=== PATIENT | male | born 1995 ===

== ENCOUNTER 2017-06-04 23:14 | Inpatient (IN) | payer OTHER ==
[2017-06-04 23:24] VITALS: O2SAT 99
--- NOTE | 2017-06-05 00:01 | ED PDOC ---
HPI: Psych/Substance Abuse Time Seen by Provider: 06/04/17 23:27 Chief Complaint (Nursing): Psychiatric Evaluation Chief Complaint (Provider): bizarre behavior Additional Complaint(s): Pt called 911 with paranoid delusions. Pt reports that he's just nervous. Denies homicidal or suicidal ideations. Denies hallucinations. Admits to smoking marijuana regularly. Denies other substance abuse. PMD None Past Medical History Reviewed: Historical Data, Nursing Documentation, Vital Signs Vital Signs: Last Vital Signs Temp 98.0 F 06/04/17 23:19 Pulse 93 H 06/04/17 23:19 Resp 18 06/04/17 23:19 BP 148/119 H 06/04/17 23:19 Pulse Ox 99 06/04/17 23:19 - Medical History PMH: No Chronic Diseases - Surgical History Surgical History: Appendectomy - Family History Family History: States: No Known Family Hx - Social History Current smoker - smoking cessation education provided: Yes Alcohol: None Drugs: Cannabis - Allergies Allergies/Adverse Reactions: Allergies Allergy/AdvReac Type Severity Reaction Status Date / Time No Known Allergies Allergy Verified 06/04/17 23:19 Review of Systems ROS Statement: Except As Marked, All Systems Reviewed And Found Negative Psych: Positive for: Anxiety. Negative for: Suicidal ideation, Withdrawal Physical Exam - Reviewed Nursing Documentation Reviewed: Yes Vital Signs Reviewed: Yes - Physical Exam Appears: Positive for: In Acute Distress (restless and anxious) Head Exam: Positive for: ATRAUMATIC, NORMOCEPHALIC Skin: Positive for: Warm, Dry Eye Exam: Positive for: Normal appearance, EOMI, PERRL ENT: Positive for: Other (muc membr moist) Neck: Positive for: Painless ROM, Supple Cardiovascular/Chest: Positive for: Regular Rate, Rhythm, Chest Non Tender. Negative for: Murmur Respiratory: Positive for: Normal Breath Sounds. Negative for: Respiratory Distress Gastrointestinal/Abdominal: Positive for: Soft. Negative for: Tenderness Back: Positive for: Normal Inspection Extremity: Positive for: Normal ROM. Negative for: Deformity Lymphatic: Negative for: Adenopathy Neurologic/Psych: Positive for: Alert, Oriented, Mood/Affect (anxious mood and excited and anxious affect, tangential thought, flight of ideas, poor concentration. Otherwise cooperative during my exam.). Negative for: Motor/ Sensory Deficits - Laboratory Results Result Diagrams: 06/04/17 01:01 06/04/17 01:01 - ECG O2 Sat by Pulse Oximetry: 99 - Progress ED Course And Treament: Manic behavior, new onset Labs and crisis eval ordered Due to restlessness, attempts to leave room often. 1:1 ordered. Disposition - Clinical Impression Clinical Impression: Bizarre behavior - Disposition Disposition Time: 00:00 Condition: STABLE Patient Signed Over To: Arnel Moreno Y Handoff Comments: Pending Crisis eval, final dispo
--- NOTE | 2017-06-05 00:19 | ED PDOC ---
- Laboratory Results Result Diagrams: 06/04/17 01:01 06/04/17 01:01 - ECG O2 Sat by Pulse Oximetry: 99 Medical Decision Making Medical Decision Makin Patient signed out to me from Dr. Lucia pending work up and crisis evalutaion [id number] Patient evaluated by crisis. Will be admitted under [facility] for anxiety. Labs reviewed: (+) marijuana Scribe Attestation: Documented by Adilia Ramirez acting as a scribe for Arnel Moreno MD. Scribe Attestation: All medical record entries made by the Scribe were at my direction and personally dictated by me. I have reviewed the chart and agree that the record accurately reflects my personal performance of the history, physical exam, medical decision making, and the department course for this patient. I have also personally directed, reviewed, and agree with the discharge instructions and disposition. Disposition Counseled Patient/Family Regarding: Studies Performed, Diagnosis - Clinical Impression Clinical Impression: Bizarre behavior - POA Present On Arrival: None - Disposition Disposition: Admitted as In-Patient (Psychiatric) Disposition Time: 01:05 Condition: STABLE
[2017-06-05 01:11] LABS: BASO % 0.4 % (0.0-2.0); EOS % 0.3 % (0.0-4.0); HEMATOCRIT 43.5 % (35.0-51.0); LYMPH % 19.4 % (20.0-40.0); MEAN CELL VOLUME 90.9 fl (80.0-94.0); MEAN CORPUSCULAR HEMOGLOBIN 30.1 pg (27.0-31.0); MEAN CORPUSCULAR HGB CONC 33.2 g/dL (33.0-37.0); MEAN PLATELET VOLUME 8.9 fl (7.2-11.7); MONO # 0.7 K/uL (0.0-0.8); MONO % 7.2 % (0.0-10.0); NEUT # 7.4 K/uL (1.8-7.0); NEUT % 72.7 % (50.0-75.0); NRBC % 0.1 % (0.0-0.0); RED CELL DISTRIBUTION WIDTH 13.8 % (11.5-14.5); WHITE BLOOD COUNT 10.2 K/uL (4.8-10.8)
[2017-06-05 01:21] LABS: ALB/GLOB RATIO 1.7 (1.0-2.1); ALCOHOL SERUM < 10 mg/dl (0-10); ALKALINE PHOSPHATASE 74 U/L (38-126); ALT/SGPT 41 U/L (21-72); AST/SGOT 29 U/L (17-59); BILIRUBIN,TOTAL 0.9 mg/dl (0.2-1.3); BLOOD UREA NITROGEN 10 mg/dl (9-20); CALCIUM 9.8 mg/dL (8.4-10.2); CARBON DIOXIDE 25 mmol/L (22-30); CHLORIDE 103 mmol/L (98-107); GFR AFRICAN-AMERICAN > 60; GLUCOSE,RANDOM 125 mg/dL (75-110); POTASSIUM 3.8 MMOL/L (3.6-5.0); SODIUM 142 mmol/l (132-148); TOTAL PROTEIN 7.8 G/DL (6.3-8.2)
[2017-06-05 01:50] LABS: THYROID STIMULATING HORMONE 1.72 mIU/ML (0.46-4.68)
[2017-06-05] MEDS ORDERED: Magnesium Hydroxide Susp 30 ml UD PO PRN (02:44)
[2017-06-05] MEDS ORDERED: Alum-Mag Hydrox-Simethicone Susp (30 mL) PO PRN (02:44)
[2017-06-05] MEDS ORDERED: DiphenhydrAMINE 50 mg/ml Inj IM PRN (02:44)
--- NOTE | 2017-06-05 03:26 | PCM.BM ---
<Maria Isabel Silva - Last Filed: 06/05/17 03:24> Treatment Plan Problems - Problems identified on initial assessmt Delusions Date Initiated: 06/05/17 Time Initiated: 03:25 Assessment reference: NA Status: Active Altered though process Date Initiated: 06/05/17 Time Initiated: 03:25 Assessment reference: NA Status: Active Ineffective coping Date Initiated: 06/05/17 Time Initiated: 03:26 Assessment reference: NA Status: Active Treatment assets and liabiliti Patient Assests: adapts well, cooperative, ADL independent, physically healthy, negotiates basic needs Patient Liabilities: poor support system, substance abuse - Milieu Protocol Maintain good personal hygiene: daily Remind patient to perform daily oral care , daily Assist patient to perform ADL's, every shift Encourage regular showers Maintain personal safety: daily Educate patient to report safety concerns to staff, every shift Monitor environment for contraband/sharps Medication safety: Monitor for expected outcome, potential side effects: daily, Assess barriers to learning: daily, Assess readiness for medication education: every shift <Mamta Banuelos - Last Filed: 06/07/17 10:17> Treatment assets and liabiliti Patient Assests: adapts well, cooperative, motivated, self-reliant, ADL independent, physically healthy, negotiates basic needs Patient Liabilities: poor support system, substance abuse Family Contact Family involvement: Family/SO is involved Family contact: Patient agrees to contact, Family has been contacted by patient Family contact name: Chiquis(girlfriend) ([phone]) Family contacted how many times per week?: 1 Family contact comment: Patient identifies long-term girlfriend has bestfriend and primary support. - Goals for Treatment Patient goals for treatment: Patient to be encouraged to attend 3-5 groups/ weekly to identify contributing factors to admission, develop effective coping skills and improve insight. Patient reports improvement in sleep and some improvement in organization of thoughts since admission. Patient expresses being motivated for tx upon d/c. Patient to be provided with referral for appropriate level of aftercare to improve functioning/ensure saftey and reduce risk of future hospitalizations. Discharge/Continuing Care - Education Needs Education Needs: Family Medication, Family Diagnosis/Disease Process, Family Coping Skills, Family Community resources, Family Aftercare Safety Plan, Patient Medication, Patient Diagnosis/Disease Process, Patient Coping Skills, Patient Community resources, Patient Aftercare Safety Plan - Discharge Discharge Criteria: Tolerates medication w/o severe side effects, Free of Suicidal thoughts, Normal sleep pattern, Ability to care for self, Reduction of target symptoms Discharge to:: Home - Treatment Team Participation Patient/Family/SO Statement: 06/07/17 10:11 Patient attended treatment team. Patient continues to present as disorganized and tangential but to a slightly lesser degree than upon admission. Patient presented with loosened associations and flight of ideas. Patient required redirection but is better able to participate in discussion regarding mental health dx, progress on 3NP and aftercare. Discussed with Family/SO: No Was Patient/Family/SO present at Treatment Team Meeting: Radha
[2017-06-05 07:47] LABS: CHOLESTEROL 117 mg/dL (0-199)
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
[2017-06-05] MEDS: Risperidone M tab 0.5MG PO SCH (13:37)
[2017-06-05] MEDS: Divalproex 250 mg DR(BID formulation) PO SCH (13:37)
[2017-06-05] MEDS: Divalproex 500 mg DR(BID formulation) PO SCH (21:13)
[2017-06-06 06:16] LABS: CHOLESTEROL 124 mg/dL (0-199)
[2017-06-06] MEDS: Risperidone M tab 0.5MG PO SCH ×2 (09:41→21:02)
[2017-06-06] MEDS: Divalproex 250 mg DR(BID formulation) PO SCH (09:41)
--- NOTE | 2017-06-06 10:44 | PCM.PYCHPN ---
Psychiatric Progress Note - Psychiatric Progress Note Patient seen today, length of contact: discussed with team Patient Chief Complaint: i feel much better Problems Identified/Issues Discussed: pt remains grandiose, with rapid speech. stating he will donate all of his books to the hospital. feels the medications are helping organize his thoughts. he does continue to endorse racing thoughts. he denies medication side effects. Medication Change: Yes (increase risperdal) Medical Record Reviewed: Yes Mental Status Examination - Cognitive Function Orientation: Person, Place, Situation, Time Memory: Intact Attention: Poor Concentration: Poor Association: Loose Fund of Knowledge: WNL Decription of patient's judgement and insights: fair - Mood Mood: Euphoric - Affect Affect: Broad - Speech Speech: Loud, Pressured - Formal Thought Process Formal Thought Process: Loosening of associations, Flight of ideas, Circumstantial Psychotic Thoughts and Behaviors: grandiose, thoughts more organized - Suicidal Ideation Suicidal Ideation: No - Homicidal Ideation Homicidal Ideation: No Goal/Treatment Plan - Goal/Treatment Plan Need for Continued Stay: Remain at risks for inpatient hospitalization, Discharge may exacerbated symptoms Progress Toward Problem(s) and Goals/Treatment Plan: bipolar disorder, manic with psychosis continue current treatment will increase risperdal to bid dosing check depakote level discharge planning Estimated Date of D/C: 06/09/17
--- NOTE | 2017-06-06 12:32 | CP.PCM.CON ---
History of Present Illness - History of Present Illness History of Present Illness: Chief Complaint: " I'm ok now but I called 911 bec I was feeling very nervous and needed help" HPI : 21 y/o gent with no significant PMH , was admitted to the Psych Unit bec of bizarre behaviour- was dx to have Bipolar Dis. Patient states that prior to admission, he had difficulty sleeping and was feeling very nervous and so he called 911 and was brought to the ED. He states he feel very much better and states that the medications that were started helped him a lot. denies any sxs. He feels fine. no CP, no SOB, no abd pain. Review of Systems - Review of Systems All systems: reviewed and no additional remarkable complaints except - Constitutional Constitutional: absent: Fever, Headache - EENT Eyes: absent: Blurred Vision, Change in Vision Ears: absent: Decreased Hearing Nose/Mouth/Throat: absent: Nasal Congestion - Cardiovascular Cardiovascular: absent: Chest Pain, Chest Pain at Rest, Edema, Orthopnea, Paroxysmal Nocturnal Dyspnea - Respiratory Respiratory: absent: Cough, Dyspnea, Dyspnea on Exertion - Gastrointestinal Gastrointestinal: absent: Abdominal Pain, Nausea, Vomiting - Genitourinary Genitourinary: absent: Dysuria, Nocturia - Musculoskeletal Musculoskeletal: absent: Abnormal Gait, Arthralgias, Limited Range of Motion - Integumentary Integumentary: absent: Lesions - Neurological Neurological: absent: Abnormal Gait, Focal Weakness - Psychiatric Psychiatric: Abnormal Sleep Pattern, Behavioral Changes - Endocrine Endocrine: absent: Polydipsia, Polyphagia, Polyuria - Hematologic/Lymphatic Hematologic: absent: Easy Bleeding, Easy Bruising Past Patient History - Infectious Disease Hx of Infectious Diseases: None - Tetanus Immunizations Tetanus Immunization: Unknown - Past Medical History & Family History Past Medical History?: Yes Pertinent Family History: Mother : DM type II - Past Social History Smoking Status: Light Smoker < 10 Cigarettes Daily Chewing Tobacco Use: No Cigar Use: No Occupation: used to work at [employer] Alcohol: None Drugs: Cannabis Home Situation {Lives}: Roommate - CARDIAC Hx Cardiac Disorders: No Hx Hypertension: No - PULMONARY Hx Respiratory Disorders: No Hx Tuberculosis: No - NEUROLOGICAL HX Cerebrovascular Accident: No Hx Seizures: No - HEENT Hx HEENT Problems: No - RENAL Hx Chronic Kidney Disease: No - ENDOCRINE/METABOLIC Hx Endocrine Disorders: No - HEMATOLOGICAL/ONCOLOGICAL Hx Blood Disorders: No Hx Cancer: No Hx Human Immunodeficiency Virus (HIV): No - INTEGUMENTARY Hx Dermatological Problems: No Other/Comment: Hemangioma right hip area - MUSCULOSKELETAL/RHEUMATOLOGICAL Hx Musculoskeletal Disorders: No - GASTROINTESTINAL Hx Gastrointestinal Disorders: No - GENITOURINARY/GYNECOLOGICAL Hx Genitourinary Disorders: No Hx Sexually Transmitted Disorders: No - PSYCHIATRIC Hx Substance Use: Yes (Marijuana) - SURGICAL HISTORY Hx Appendectomy: Yes Hx Herniorrhaphy: Yes - ANESTHESIA Hx Anesthesia: No Meds Allergies/Adverse Reactions: Allergies Allergy/AdvReac Type Severity Reaction Status Date / Time No Known Allergies Allergy Verified 06/04/17 23:19 - Medications Medications: Current Medications Acetaminophen (Tylenol 325mg Tab) 650 mg PO Q4 PRN PRN Reason: Pain, moderate (4-7) Al Hydrox/Mg Hydrox/Simethicone (Maalox Plus 30 Ml) 30 ml PO Q4 PRN PRN Reason: Dyspepsia Diphenhydramine HCl (Benadryl) 50 mg IM Q6 PRN PRN Reason: Extrapyramidal S/S Unable PO Diphenhydramine HCl (Benadryl) 50 mg PO Q6 PRN PRN Reason: Extrapyramidal Symptoms Diphenhydramine HCl (Benadryl) 50 mg PO HS PRN PRN Reason: Sleep Divalproex Sodium (Depakote Dr(*Bid*)) 250 mg PO DAILY [facility] Last Admin: 06/06/17 09:41 Dose: 250 mg Divalproex Sodium (Depakote Dr(*Bid*)) 500 mg PO HS [facility] Last Admin: 06/05/17 21:13 Dose: 500 mg Haloperidol (Haldol) 5 mg PO Q4 PRN PRN Reason: Agitation Haloperidol Lactate (Haldol) 5 mg IM Q4 PRN PRN Reason: Agitation, Unable to Take PO Lorazepam (Ativan) 2 mg IM Q4 PRN PRN Reason: Anxiety/Agitation,Unable PO Lorazepam (Ativan) 1 mg PO Q4 PRN PRN Reason: Anxiety/Agitation Magnesium Hydroxide (Milk Of Magnesia) 30 ml PO HS PRN PRN Reason: Constipation Risperidone (Risperdal M-Tab) 0.5 mg PO AMHS [facility] Physical Exam - Constitutional Appears: No Acute Distress - Head Exam Head Exam: ATRAUMATIC, NORMAL INSPECTION, NORMOCEPHALIC - Eye Exam Eye Exam: EOMI, Normal appearance, PERRL Pupil Exam: NORMAL ACCOMODATION - ENT Exam ENT Exam: Mucous Membranes Moist, Normal External Ear Exam - Neck Exam Neck exam: Positive for: Full Rom. Negative for: Meningismus - Respiratory Exam Respiratory Exam: NORMAL BREATHING PATTERN. absent: Respiratory Distress - Cardiovascular Exam Cardiovascular Exam: REGULAR RHYTHM, +S1, +S2 - GI/Abdominal Exam GI & Abdominal Exam: Normal Bowel Sounds, Soft. absent: Tenderness - Extremities Exam Extremities exam: Positive for: full ROM, normal capillary refill, pedal pulses present. Negative for: calf tenderness Additional comments: ambulatory Right hip hemangioma - Back Exam Back exam: FULL ROM. absent: CVA tenderness (L), CVA tenderness (R) - Neurological Exam Neurological exam: Alert, CN II-XII Intact, Normal Gait, Oriented x3, Reflexes Normal - Psychiatric Exam Psychiatric exam: Normal Affect, Normal Mood - Skin Skin Exam: Dry, Normal Color, Warm Results - Vital Signs Recent Vital Signs: Last Vital Signs Temp 97.7 F 06/06/17 09:00 Pulse 67 06/06/17 09:00 Resp 18 06/06/17 09:00 BP 134/55 L 06/06/17 09:00 Pulse Ox 99 06/06/17 05:33 - Labs Result Diagrams: 06/04/17 01:01 06/04/17 01:01 Labs: Laboratory Results - last 24 hr 06/06/17 05:55 Triglycerides 70 D Cholesterol 124 LDL Cholesterol Direct 60 HDL Cholesterol 45 Assessment & Plan (1) Bipolar disorder Status: Acute Comment: Mgt by Psych. started on Risperdal and depakote. also on Ativan (2) Cannabinosis Status: Chronic Comment: Urine Drug Screen + for Cannabinoids. admits to smoking cigarettes and Marijuana
[2017-06-06] MEDS: Divalproex 500 mg DR(BID formulation) PO SCH (21:03)
[2017-06-07] MEDS: Divalproex 250 mg DR(BID formulation) PO SCH (08:52)
[2017-06-07] MEDS: Risperidone M tab 0.5MG PO SCH ×2 (08:52→21:14)
[2017-06-07 09:09] VITALS: RESP 18
--- NOTE | 2017-06-07 09:19 | PCM.PYCHPN ---
Psychiatric Progress Note - Psychiatric Progress Note Patient seen today, length of contact: discussed with team Patient Chief Complaint: i feel more focused Problems Identified/Issues Discussed: pt states he is sleeping better, feels his thoughts are more focused. he is still with increased energy, grandiose, rapid speech. he is pleasant and is agreeable to following up with aftercare treatment Medication Change: No ( ) Medical Record Reviewed: Yes Mental Status Examination - Cognitive Function Orientation: Person, Place, Situation, Time Memory: Intact Attention: Poor Concentration: Poor Association: Loose Fund of Knowledge: WNL Decription of patient's judgement and insights: fair - Mood Mood: Euphoric - Affect Affect: Broad - Speech Speech: Loud, Pressured - Formal Thought Process Formal Thought Process: Flight of ideas Psychotic Thoughts and Behaviors: grandiose, thoughts more organized - Suicidal Ideation Suicidal Ideation: No - Homicidal Ideation Homicidal Ideation: No Goal/Treatment Plan - Goal/Treatment Plan Need for Continued Stay: Remain at risks for inpatient hospitalization, Discharge may exacerbated symptoms Progress Toward Problem(s) and Goals/Treatment Plan: bipolar disorder, manic with psychosis continue current treatment continue risperdal 0.5mg bid check depakote level and lfts tomorrow discharge planning Estimated Date of D/C: 06/09/17
[2017-06-07] MEDS: Divalproex 500 mg DR(BID formulation) PO SCH (21:14)
[2017-06-08 08:31] LABS: ALB/GLOB RATIO 1.6 (1.0-2.1); BILIRUBIN,TOTAL 1.6 mg/dl (0.2-1.3); TOTAL PROTEIN 7.7 G/DL (6.3-8.2)
[2017-06-08] MEDS: Risperidone M tab 0.5MG PO SCH (08:36)
[2017-06-08] MEDS: Divalproex 250 mg DR(BID formulation) PO SCH (08:36)
[2017-06-08 09:30] LABS: T4 9.06 ug/dl (5.5-11.0)
[2017-06-08 09:44] LABS: THYROID STIMULATING HORMONE 1.56 mIU/ML (0.46-4.68)
--- NOTE | 2017-06-08 11:24 | PCM.PYCHPN ---
Psychiatric Progress Note - Psychiatric Progress Note Patient seen today, length of contact: discussed with team Patient Chief Complaint: i feel better Problems Identified/Issues Discussed: pt a bit more subdued in the milieu. still grandiose and with rambling speech when engaged 1:1. denies medication side effects. he is focused on being discharged soon. Diagnostic Results: depakote level 78 Medication Change: Yes (inc. risperdal) Medical Record Reviewed: Yes Mental Status Examination - Cognitive Function Orientation: Person, Place, Situation, Time Memory: Intact Attention: Poor Concentration: Poor Association: Loose Fund of Knowledge: WNL Decription of patient's judgement and insights: fair - Mood Mood: Euphoric - Affect Affect: Broad - Speech Speech: Loud, Pressured - Formal Thought Process Formal Thought Process: Flight of ideas Psychotic Thoughts and Behaviors: grandiose, thoughts more organized - Suicidal Ideation Suicidal Ideation: No - Homicidal Ideation Homicidal Ideation: No Goal/Treatment Plan - Goal/Treatment Plan Need for Continued Stay: Remain at risks for inpatient hospitalization, Discharge may exacerbated symptoms Progress Toward Problem(s) and Goals/Treatment Plan: bipolar disorder, manic with psychosis continue current treatment continue risperdal 0.5mg in the am and 1mg hs maintain depakote at current dose discharge planning Estimated Date of D/C: 06/09/17
[2017-06-08] MEDS ORDERED: Risperidone M tab 1 MG PO SCH (22:00)
[2017-06-08] MEDS: Divalproex 500 mg DR(BID formulation) PO SCH (22:04)
[2017-06-09] MEDS: Divalproex 250 mg DR(BID formulation) PO SCH (08:37)
[2017-06-09] MEDS ORDERED: Risperidone M tab 0.5MG PO SCH (09:00)
[2017-06-09 09:08] VITALS: BP 109/71; PULSE 61; TEMP 97.5
--- NOTE | 2017-06-09 12:53 | PCM.PYCHDC ---
Mental Status Examination - Mental Status Examination Orientation: Person, Place, Situation, Time Memory: Intact Mood: Neutral Affect: Broad Speech: Pressured (less pressured than admission, is interruptable) Attention: WNL Concentration: WNL Association: WNL Fund of Knowledge: WNL Formal Thought Process: No Impairment, Loosening of associations (mild loosing of associations) Description of patient's judgement and insight: fair Psychotic Thoughts and Behaviors: thoughts more organized, less grandiose, more reality based and at baseline per his fiancee Suicidal Ideation: No Current Homicidal Ideation?: No Plan: pt denies any suicidal or homicidal thoughts/plans or intent Discharge Summary - Discharge Note Reason for Hospitalization: pt with symptoms of varinder, self referred as he felt he wasn't thinking appropriately. Psychiatric History (includes Medical, Family, Personal Hx): no previous treatment. Laboratory Data: Abnormal Lab Results 06/06/17 03:50 RPR Nonreactive depakote level 78.8 Consultations:: List each consultation separately and include: 1. Reason for request. 2. Findings. 3. Follow-up Consultations: seen by hospitalist Summary of Hospital Course include:: 1. Description of specific treatment plan utilized for patients during their course of treatmen. 2. Summarize the time- course for resolution of acute symptoms and/or regressed behaviors. 3. Describe issues identified and worked on during hospitalization. 4. Describe medication utilized. 5. Describe medical problems identified and treated. 6. Reassessment of suicide risk Summary of Hospital Course: 21 yo male with no previous psychiatric history. pt presented to the ER with pressured speech and disorganized thoughts. he states he hadn't slept in 4 days. he was speaking words of german, wolof, welsh and estonian when seen by this racebook writer and his speech was rapid and not on topic being asked. he denied using any drugs outside of mj and specifically denied using synthetic mj. he is grandiose and states that he thought he had a mission to accomplish and was feeling "really good" but states "now i didn't accomplish it..i'm in the hospital...i really want to go" pt denies hearing any voices. he endorses some paranoid thoughts, but is vague and is tangential when discussing topic. he states he has a roomate who doesn't know he is here. he seems to be an unreliable historian. hospital course: pt was admitted to [facility] and oriented to the unit. pt was placed on routine safety protocols. pt was started on medications to target his varinder/psychosis. he tolerated the medications and allowed the dose to be titrated up to current levels. the patient's fiance was in contact with the pt and the treatment team and was confirming his improvement. he attended groups. he was agreeable to follow up with aftercare treatment. he remained with some rapid speech, but had become more reality focused and much less grandiose than how he presented at admission. he was denying any suicidal or homicidal thoughts. he was denying any A/V hallucinations at time of discharge - Final Diagnosis (DSM 5) Condition upon Discharge: STABLE DSM 5: bipolar disorder, manic Disposition: HOME/ ROUTINE Follow-up Treatment Plan: follow up with aftercare as directed take medications as prescribed do not use alcohol, tobacco or other illicit substances call 911 if any suicidal or homicidal thoughts Prescriptions/Medication Reconciliation: Divalproex [Depakote DR(*BID*)] 250 mg PO DAILY #30 tcp Divalproex [Depakote DR(*BID*)] 500 mg PO HS #30 tcp risperiDONE [RisperDAL] 0.5 mg PO DAILY #30 tab risperiDONE [RisperDAL Tab] 1 mg PO DAILY #30 tab - Smoking Cessation Smoking Cessation Medication prescribed: No - Antipsychotic Medications Pt discharged on 2 or more routine antipsychotic medications: No
--- NOTE | 2017-06-09 18:41 | CARD ---
APPROVED REPORT EKG Measurement Heart [id number] CT 98P14 [id number] <Conclusion> Sinus bradycardia with short CT with premature supraventricular complexes Early repolarization Otherwise normal ECG
== END 2017-06-09 13:00 | disposition home or self-care (01) | DRG 430 ==
LOC: H.ER 23:14 → OBSVTOIN 23:39 → H.EROBSV 23:39 → H.ERHOLD 06-05 01:46 → H.PSYCH 06-05 02:48
PROVIDERS: ADMIT Psychiatry & Neurology Psychiatry; ATTEND Psychiatry & Neurology Psychiatry
PROC: GZ51ZZZ Individual Psychotherapy, Behavioral (ICD-10-PCS; 2017-06-04)
PROC: GZHZZZZ Group Psychotherapy (ICD-10-PCS; principal; 2017-06-06)
DX: F31.9 Bipolar disorder, unspecified (principal); F22 Delusional disorders; F17.200 Nicotine dependence, unspecified, uncomplicated; F12.90 Cannabis use, unspecified, uncomplicated; F41.9 Anxiety disorder, unspecified; Z90.49 Acquired absence of other specified parts of digestive tract; G47.9 Sleep disorder, unspecified; Z83.3 Family history of diabetes mellitus

== ENCOUNTER 2018-09-09 09:47 | Emergency (ER) | payer MEDICAID, OTHER ==
[2018-09-09 10:11] VITALS: BMI 29.2
[2018-09-09 10:13] VITALS: TEMP 98.4
[2018-09-09 11:28] LABS: BASO % 0.8 % (0.0-2.0); EOS # 0.1 K/uL (0.0-0.7); EOS % 1.4 % (0.0-4.0); HEMOGLOBIN 15.5 g/dL (12.0-18.0); LYMPH # 1.8 K/uL (1.0-4.3); LYMPH % 38.3 % (20.0-40.0); MEAN CELL VOLUME 89.8 fl (80.0-94.0); MEAN CORPUSCULAR HEMOGLOBIN 29.9 pg (27.0-31.0); MEAN CORPUSCULAR HGB CONC 33.3 g/dL (33.0-37.0); MEAN PLATELET VOLUME 9.2 fl (7.2-11.7); MONO # 0.3 K/uL (0.0-0.8); MONO % 5.9 % (0.0-10.0); NEUT # 2.6 K/uL (1.8-7.0); NEUT % 53.6 % (50.0-75.0); NRBC % 0.1 % (0.0-0.0); RBC 5.19 Mil/uL (4.40-5.90); RED CELL DISTRIBUTION WIDTH 13.5 % (11.5-14.5); WHITE BLOOD COUNT 4.8 K/uL (4.8-10.8)
[2018-09-09 11:38] LABS: ALB/GLOB RATIO 1.3 (1.0-2.1); ALBUMIN 4.3 g/dL (3.5-5.0); ALT/SGPT 32 U/L (21-72); AST/SGOT 34 U/L (17-59); BLOOD UREA NITROGEN 16 mg/dl (9-20); CALCIUM 9.3 mg/dL (8.4-10.2); GFR NON-AFRICAN AMERICAN > 60
--- NOTE | 2018-09-09 13:40 | ED PDOC ---
HPI: Skin/Bite Injury Time Seen by Provider: 09/09/18 10:27 Chief Complaint (Nursing): Abnormal Skin Integrity Chief Complaint (Provider): Pruritis History Per: Patient History/Exam Limitations: no limitations Onset/Duration Of Symptoms: Hrs (3) Current Symptoms Are (Timing): Still Present Location Of Injury: Right: Forearm, Left: Forearm Quality Of Symptoms: Itching Severity: Mild Additional Complaint(s): Pt presents with his complaining of mild pruritis on the bilateral upper extremities; pt does have mild small (<3mm) erythematous simmons that are not raised; pt also complains of same symptoms with more intense signs. Pt denies any environmental changes of recent. Past Medical History Reviewed: Historical Data, Nursing Documentation, Vital Signs Vital Signs: Last Vital Signs Temp 98.4 F 09/09/18 10:12 Pulse 63 09/09/18 10:12 Resp 20 09/09/18 10:12 BP 113/70 09/09/18 10:12 Pulse Ox 99 09/09/18 10:12 - Medical History PMH: Denies: Diabetes, Hepatitis, HIV, HTN, Chronic Kidney Disease, Seizures, Sexually Transmitted Disease - Surgical History Surgical History: Appendectomy - Family History Family History: States: Unknown Family Hx - Immunization History Hx Tetanus Toxoid Vaccination: No Hx Influenza Vaccination: No Hx Pneumococcal Vaccination: No - Home Medications Home Medications: Ambulatory Orders Medication Instructions Recorded RX: Divalproex [Depakote DR(*BID*)] 250 mg PO DAILY #30 tcp 06/09/17 RX: Divalproex [Depakote DR(*BID*)] 500 mg PO HS #30 tcp 06/09/17 risperiDONE [RisperDAL Tab] 1 mg PO DAILY #30 tab 06/09/17 risperiDONE [RisperDAL] 0.5 mg PO DAILY #30 tab 06/09/17 RX: Prednisone [Deltasone] 20 mg PO DAILY #5 tablet 09/09/18 - Allergies Allergies/Adverse Reactions: Allergies Allergy/AdvReac Type Severity Reaction Status Date / Time No Known Allergies Allergy Verified 06/04/17 23:19 Review of Systems ROS Statement: Except As Marked, All Systems Reviewed And Found Negative Constitutional: Negative for: Fever, Chills, Sweats Eyes: Negative for: Pain Skin: Positive for: Other (pruritis) Physical Exam - Reviewed Nursing Documentation Reviewed: Yes Vital Signs Reviewed: Yes - Physical Exam Appears: Positive for: Well, Non-toxic, No Acute Distress. Negative for: Uncomfortable Head Exam: Positive for: ATRAUMATIC, NORMAL INSPECTION Skin: Positive for: Normal Color, Rash (see HPI). Negative for: Diaphoresis, Jaundice Eye Exam: Positive for: Normal appearance, EOMI, PERRL ENT: Positive for: Normal ENT Inspection, Pharynx Is (clear and nonerythematous; without exudate), TM Is/Are Neck: Positive for: Normal, Painless ROM, Supple. Negative for: Decreased ROM Cardiovascular/Chest: Positive for: Regular Rate, Rhythm Respiratory: Positive for: Normal Breath Sounds Pulses-Carotid (L): 2+ Pulses-Carotid (R): 2+ Pulses-Radial (L): 2+ Pulses-Radial (R): 2+ - Laboratory Results Result Diagrams: 09/09/18 11:20 09/09/18 11:20 - ECG O2 Sat by Pulse Oximetry: 99 Medical Decision Making Medical Decision Making: decadron 10mg cbc/cmp which show no clinically significant results Disposition - Clinical Impression Clinical Impression: Pruritic dermatitis - Patient ED Disposition Is Patient to be Admitted: No Doctor Will See Patient In The: Office Counseled Patient/Family Regarding: Studies Performed, Diagnosis, Need For Followup - Disposition Referrals: Gerald Dunn MD [Non-Staff] - Disposition: Routine/Home Disposition Time: 17:12 Condition: STABLE Prescriptions: RX: Prednisone [Deltasone] 20 mg PO DAILY #5 tablet Instructions: Itchy Skin Forms: [employer] (Ukrainian)
[2018-09-09 15:01] VITALS: RESP 18
[2018-09-09 15:38] VITALS: BP 120/71; PULSE 68
[2018-09-09 17:12] VITALS: O2SAT 99
== END 2018-09-09 15:36 | disposition home or self-care (01) ==
LOC: H.ER 09:47
DX: L30.8 Other specified dermatitis (principal)
CPT/HCPCS: 80053; 85025; 96374; 99283; J1100